=== PATIENT | male | born 1975 | race Caucasian/White ===

== ENCOUNTER 2021-05-31 08:39 | Emergency (ER) | payer OTHER ==
[~2021-05-31] VITALS: Ht 170.2 cm; Wt 70.5 kg
[~2021-05-31 08:39] MED LIST: ASPI-1198 PO; ATOR40TA28 PO; HYDR12.54 PO; METF-960 PO; NITR0.4T10 SL
[2021-05-31] MEDS ORDERED: FAMOTIDINE 20 MG TABLET PO ONE (10:00)
[2021-05-31] MEDS ORDERED: PB/HYOSCY/ATR/SCOP/LIDO/MAALOX 55 ML BOTTLE PO ONE (10:00)
[2021-05-31] MEDS ORDERED: ONDANSETRON HCL 4 MG TABLET PO ONE (10:00)
[2021-05-31 11:00] VITALS: BP 119/84
== END 2021-05-31 11:24 | disposition home or self-care (01) ==
LOC: EMS 08:44 → EDBD 08:44 → EMS 11:24
DX: R10.13 Epigastric pain (principal); E11.9 Type 2 diabetes mellitus without complications; Z88.5 Allergy status to narcotic agent; Z79.84 Long term (current) use of oral hypoglycemic drugs; Z79.899 Other long term (current) drug therapy
CPT/HCPCS: 99284; Q0162